=== PATIENT | female | born 1990 | race Two or more races ===

== ENCOUNTER 2018-07-06 10:37 | Outpatient (CLI) | END 2018-07-06 13:10 | disposition home or self-care (01) ==

== ENCOUNTER 2018-10-27 15:57 | Outpatient (CLI) | END 2018-10-27 18:50 | disposition home or self-care (01) ==

== ENCOUNTER 2018-10-31 13:11 | Outpatient (CLI) | END 2018-10-31 14:28 | disposition home or self-care (01) ==

== ENCOUNTER 2018-11-03 15:24 | Inpatient (IN) | END 2018-11-06 15:27 | disposition home or self-care (01) | DRG 788 ==